=== PATIENT | female | born 1995 | race Caucasian/White ===

== ENCOUNTER 2024-10-04 15:00 | Emergency (ER) | payer BC | END 2024-10-04 15:35 | disposition home or self-care (01) | LOC: CSHERS 15:00 | DX: R11.2 Nausea with vomiting, unspecified (principal); R19.7 Diarrhea, unspecified | CPT/HCPCS: 99283; Q0162 ==

== ENCOUNTER 2024-10-11 14:20 | Emergency (ER) | payer BC ==
[2024-10-11 15:12] LABS: #Basophils 0.08 10x3/uL (0.0-0.2); #Eosinophils 0.17 10x3/uL (0.0-0.5); #Monocytes 0.90 10x3/uL (0.0-1.1); #Neutrophils 13.73 10x3/uL (1.5-8.4); %Basophils 0.5 % (0.0-2.0); %Eosinophils 1.0 % (0.0-6.0); %Lymphocytes 15.2 % (18.0-47.0); %Monocytes 5.1 % (0.0-10.0); %Neutrophils 77.7 % (40.0-75.0); Hematocrit 40.7 % (34.9-44.5); Hemoglobin 13.7 g/dL (12.0-15.5); Mean Corpuscular Hemoglobin 28.5 pg (27.0-33.0); Mean Corpuscular Volume 84.8 fL (81.6-98.3); Platelet Count 501 10x3/uL (150-450); Red Blood Cell (RBC) Count 4.80 10x6/uL (3.90-5.03); White Blood Cell (WBC) Count 17.64 10x3/uL (3.5-10.5)
[2024-10-11 15:21] LABS: BHCG - Serum Negative (NEGATIVE); Pregs Control Background? CLEAR/WHITE (CLR/WHITE); Pregs Control Bar Appear? YES (CONTROL BAR)
[2024-10-11 15:28] LABS: ALT (SGPT) 27 U/L (Less than 34); AST (SGOT) 30 U/L (11-34); Albumin 4.0 g/dL (3.1-4.5); Alkaline Phosphatase 86 U/L (40-110); Anion Gap 20 mmol/L (10-20); BUN (Urea Nitrogen) 8 mg/dL (7.0-18.7); Bilirubin, Total 0.7 mg/dL (0.3-1.2); Calc. Creatinine Clearance 0 mL/min (70-130); Calcium 9.8 mg/dL (7.8-10.44); Carbon Dioxide 16 mmol/L (22-29); Chloride 107 mmol/L (98-107); Globulin 4.7 g/dL (2.4-3.5); Glucose 124 mg/dL (70-105); Lipase 13 U/L (8-78); Potassium 3.8 mmol/L (3.5-5.1); Sodium 139 mmol/L (136-145)
[2024-10-11 16:14] LABS: Glucose, Urine (Dipstick) Normal (Negative); Leukocyte Negative (Negative); Protein, Urine (Dipstick) 30 mg/dl (Neg-Trace); Specific Gravity, Urine 1.020 (1.005-1.030)
[2024-10-11 17:22] LABS: CAUTI Indications for Culture Pelvic or flank pain; RBC/HPF 0-3 HPF (0-3)
[2024-10-11 17:23] LABS: Bacteria/HPF 2+ HPF (None Seen); Sperm/HPF Rare HPF (None Seen)
[2024-10-11 17:28] LABS: Mucous/LPF 3+ LPF (<2+)
[2024-10-11 17:29] LABS: Urine Culture Reflex No No
== END 2024-10-11 17:21 | disposition home or self-care (01) ==
LOC: CSHERS 14:20
DX: R19.7 Diarrhea, unspecified (principal); R11.10 Vomiting, unspecified
CPT/HCPCS: 80053; 81001; 83690; 84703; 85025; 99284; Q0162

== ENCOUNTER 2025-01-03 09:39 | Emergency (ER) | payer BC ==
[2025-01-03] MEDS ORDERED: Dexamethasone 4 MG TAB ONE (10:09)
[2025-01-03] MEDS ORDERED: Acetaminophen 500 MG TAB ONE (10:09)
[2025-01-03 10:39] LABS: Glucose, Urine (Dipstick) Normal (Negative); Leukocyte 100 (Negative); Protein, Urine (Dipstick) 15 mg/dl (Neg-Trace); Specific Gravity, Urine 1.010 (1.005-1.030)
[2025-01-03 11:01] LABS: Bacteria/HPF 2+ HPF (None Seen); CAUTI Indications for Culture Pelvic or flank pain; RBC/HPF None Seen HPF (0-3); WBC/HPF 0-3 HPF (0-3)
[2025-01-03 11:03] LABS: Urine Culture Reflex No No
== END 2025-01-03 10:50 | disposition home or self-care (01) ==
LOC: CSHERS 09:39
DX: O99.511 Diseases of the respiratory system complicating pregnancy, first trimester (principal); J02.9 Acute pharyngitis, unspecified; O23.41 Unspecified infection of urinary tract in pregnancy, first trimester; N39.0 Urinary tract infection, site not specified; Z3A.10 10 weeks gestation of pregnancy
CPT/HCPCS: 81001; 87081; 87086; 87428; 87430; 99283; J8540